=== PATIENT | male | born 1960 | race Caucasian/White ===

== ENCOUNTER → 2017-07-09 | Outpatient (CLI) | payer OTHER ==
--- NOTE | 2017-07-10 13:04 | RAD ---
EXAM DESCRIPTION: Shoulder,Right 2 or More Views CLINICAL HISTORY: PAIN IN RIGHT SHOULDER COMPARISON: None Available. TECHNIQUE: Four views of the right shoulder. FINDINGS: There is adequate internal and external rotation. Normal alignment on transscapular Y view and transaxillary view. There is no fracture or dislocation. There are no significant degenerative changes observed. AC joint appears intact. No focal bone lesion. IMPRESSION: Negative for fracture or dislocation. Electronically signed by: Ace Day MD 07/10/2017 1:03 PM CDT
== END ==
LOC: RAD 09:07
PROVIDERS: ATTEND Orthopaedic Surgery
DX: M25.511 Pain in right shoulder (principal)